=== PATIENT | male | born 1930 | race Caucasian/White ===

== ENCOUNTER 2017-06-07 18:27 | Inpatient (IN) | payer MEDICARE, OTHER ==
[~2017-06-07] VITALS: Ht 172.7 cm; Wt 70.8 kg
[~2017-06-07 18:27] MED LIST: ACEBUTOLOL HCL200 MG PO; AMLODIPINE BES2.5 MG PO; CEFTIN500 MG PO; IRBESARTAN150 MG PO; LASIX40 MG PO; PANTOPRAZOLE SO40 MG PO; PLAVIX75 MG PO; POTASSIUM CHLO10 ME1 PO; PROPAFENONE HC325 MG PO; RANITIDINE HCL300 MG PO; SIMVASTATIN40 MG PO; SYNTHROID88 MCG PO; TAMSULOSIN HCL0.4 MG PO; VITAMIN B-12500 MCG PO; VITAMIN D31000 UNIT PO; [UNRECOGNIZED DRUG - REMARK]
[2017-06-07] MEDS ORDERED: ASPIRIN 325 MG TAB PO ONE (19:15)
[2017-06-07 19:32] LABS: BASOPHILS % 0.3 % (0.0-1.0); HEMATOCRIT 37.5 % (38.2-49.6); HEMOGLOBIN 12.4 g/dL (14.0-18.0); LYMPHOCYTES # (AUTO) 1.2 (1.0-3.2); LYMPHOCYTES % 17.6 % (18.0-39.1); MEAN CORPUSCULAR HEMOGLOBIN 30.8 pg (28-32); MEAN CORPUSCULAR HGB CONC 33.1 g/dL (31-35); MEAN CORPUSCULAR VOLUME 93.3 fL (81-99); MONOCYTES # (AUTO) 0.9 (0.2-0.8); MONOCYTES % 13.9 % (4.4-11.3); NEUTROPHILS # (AUTO) 4.4 (2.1-6.9); NEUTROPHILS % 67.9 % (38.7-80.0); PLATELET COUNT 133 x10e3/uL (140-360); RED BLOOD COUNT 4.02 x10e6/uL (4.3-5.7); RED CELL DISTRIBUTION WIDTH 14.6 % (11.7-14.4)
--- NOTE | 2017-06-07 19:32 | Diagnostic Imaging Report ---
EXAM: CHEST SINGLE (PORTABLE), AP 1 view ORDER DATE: 06/07/2017 6:47 PM Time stamp on exam: 1916 hours INDICATION: Cough, shortness of breath COMPARISON: AP view of the chest April 28, 2016 FINDINGS: LINES/TUBES: None LUNGS: Stable appearance of interstitial lung disease. PLEURA: No effusions or pneumothorax. HEART AND MEDIASTINUM: Stable appearance. BONES AND SOFT TISSUES: No acute findings. IMPRESSION: Stable appearance of interstitial lung disease. Signed by: Dr. Heather Victor M.D. on 06/07/2017 7:28 PM
[2017-06-07 19:39] LABS: INR 1.09; PROTHROMBIN TIME 14.7 seconds (11.9-14.5)
[2017-06-07 19:40] LABS: PARTIAL THROMBOPLASTIN TIME 48.1 seconds (23.8-35.5)
[2017-06-07 19:49] LABS: ALBUMIN 3.5 g/dL (3.5-5.0); ALBUMIN/GLOBULIN RATIO 0.8 (0.8-2.0); ANION GAP 14.4 mmol/L (8-16); CALCIUM 8.9 mg/dL (8.4-10.2); CREATININE, SERUM 1.96 mg/dL (0.72-1.25); POTASSIUM 4.4 mmol/L (3.5-5.1)
[2017-06-07 20:09] LABS: CREATINE KINASE MB 1.1 ng/mL (0.00-5.00); THYROID STIMULATING HORMONE 3.941 uIU/mL (0.350-4.940)
[2017-06-07] MEDS ORDERED: ENOXAPARIN 30 MG/0.3 ML SYR SC STA (20:22)
[2017-06-07] MEDS ORDERED: FUROSEMIDE INJ 10 MG/ML 4 ML VIAL IV ONE (20:30)
[2017-06-07] MEDS ORDERED: ONDANSETRON HCL INJ 2 MG/ML VIAL IV PRN (20:30)
[2017-06-07] MEDS ORDERED: NITROGLYCERIN 0.4 MG SUBL SL PRN (20:30)
[2017-06-07] MEDS ORDERED: CEFTRIAXONE SOD 1 GM VIAL IV SCH (20:30)
[2017-06-07] MEDS ORDERED: MORPHINE SULFATE 2 MG/ML SYR IV PRN (20:30)
[2017-06-07] MEDS ORDERED: CEFTRIAXONE SOD 1 GM/NS 50 ML 50 ML IV SCH (20:45)
[2017-06-07] MEDS: AZITHROMYCIN 500MG/NS 250 ML 250 ML IV SCH ×2 (20:57→21:10)
--- OUTSIDE RECORDS SUMMARY | 2017-06-07 20:58 | XMS REPORT ---
Author Author [facility] Address Unknown Phone Unavailable Care Team Providers Care Beamer Operator Name Role Phone RADHA RICARDO Unavailable Unavailable Problems This patient has no known problems. Allergies, Adverse Reactions, Alerts This patient has no known allergies or adverse reactions. Medications This patient has no known medications. Results Test Description Test Time Test Comments Text Results Atomic Results Result Comments CHEST SINGLE (PORTABLE) [place] [id number] Patient Name: JOHNNA SOLO MR #: [id number] : 1930 Age/Sex: 86/M Req #: [id number] Adm Physician: Ordered by: CLAUDIA WHEELER MANAGER TELECOM Report #: [id number] Location: ER Room/Bed: Procedure: [id number] DX/CHEST SINGLE (PORTABLE) Exam Date: 06/07/17 Exam Time: 1900 REPORT STATUS: Signed EXAM: CHEST SINGLE (PORTABLE), AP 1 view ORDER DATE: 06/07/2017 6:47 PM Time stamp on exam : 1916 hours INDICATION: Cough, shortness of breath COMPARISON: AP view of the chest April 28, 2016 FINDINGS: LINES/TUBES: None LUNGS: Stable appearance of interstitial lung disease. PLEURA: No effusions or pneumothorax. HEART AND MEDIASTINUM: Stable appearance. BONES AND SOFT TISSUES: No acute findings. IMPRESSION: Stable appearance of interstitial lung disease. Signed by: Dr. Zenobia Victor M.D. on 06/07/2017 7:28 PM Dictated By: ZENOBIA VICTOR MD 27 Transcribed By: MERLIN on 06/07/171927 COPY TO: CLAUDIA WHEELER NP
[2017-06-07] MEDS: FAMOTIDINE 20 MG/2 ML VIAL IV SCH (21:20)
[2017-06-07 21:35] VITALS: BP 120/63
[2017-06-08 01:39] VITALS: BP 124/64
[2017-06-08 06:06] LABS: BASOPHILS % 0.2 % (0.0-1.0); EOSINOPHILS % 0.2 % (0.0-6.0); HEMATOCRIT 33.7 % (38.2-49.6); HEMOGLOBIN 11.2 g/dL (14.0-18.0); LYMPHOCYTES # (AUTO) 1.1 (1.0-3.2); LYMPHOCYTES % 18.7 % (18.0-39.1); MEAN CORPUSCULAR HGB CONC 33.2 g/dL (31-35); MEAN CORPUSCULAR VOLUME 93.4 fL (81-99); MONOCYTES # (AUTO) 0.8 (0.2-0.8); MONOCYTES % 13.9 % (4.4-11.3); NEUTROPHILS # (AUTO) 3.9 (2.1-6.9); NEUTROPHILS % 66.7 % (38.7-80.0); PLATELET COUNT 101 x10e3/uL (140-360); RED BLOOD COUNT 3.61 x10e6/uL (4.3-5.7); RED CELL DISTRIBUTION WIDTH 14.4 % (11.7-14.4)
[2017-06-08 06:37] LABS: ALBUMIN/GLOBULIN RATIO 0.9 (0.8-2.0); ANION GAP 11.9 mmol/L (8-16); CHOL/HDL RATIO 5.1 (3.9-4.7); CREATININE, SERUM 1.67 mg/dL (0.72-1.25); MAGNESIUM 1.9 MG/DL (1.3-2.1); POTASSIUM 3.9 mmol/L (3.5-5.1)
[2017-06-08 06:41] LABS: CREATINE KINASE MB 1.5 ng/mL (0.00-5.00)
[2017-06-08] MEDS ORDERED: HEMATINIC-FOLI1 EACH (07:52)
[2017-06-08] MEDS ORDERED: LOSARTAN POTAS100 MG PO (07:52)
[2017-06-08 08:10] VITALS: BP 113/63
[2017-06-08 08:14] VITALS: BP 113/63
[2017-06-08] MEDS ORDERED: SODIUM CHLORIDE 0.9% 250ML 250 ML ONE (09:11)
[2017-06-08] MEDS: FAMOTIDINE 20 MG/2 ML VIAL IV SCH ×2 (09:20→20:49)
[2017-06-08] MEDS: CLOPIDOGREL BISULFATE 75 MG TAB PO SCH (09:20)
[2017-06-08] MEDS: ASPIRIN 81 MG ENTERIC COATED PO SCH (09:20)
[2017-06-08] MEDS: CEFTRIAXONE SOD 1 GM VIAL IV SCH ×2 (09:20→20:49)
[2017-06-08] MEDS ORDERED: ACETAMINOPHEN 325 MG TAB PO PRN (10:45)
[2017-06-08 13:20] VITALS: BP 120/64
--- NOTE | 2017-06-08 13:38 | Consultation ---
DATE OF CONSULTATION: June 08, 2017 DATE OF : 1930 REASON FOR CONSULTATION: CHF. CHIEF COMPLAINT: Cough and weakness. HPI: This is an 86-year-old male with history of hypertension, CAD status post PCI, arrhythmias, mitral stenosis, peripheral vascular disease status post stenting, and hypercholesterolemia. Patient presents to [facility] ER with complaints of severe weakness and coughing since Thursday. Patient actually went to an urgent care center, was negative for influenza; however, symptoms continued. On Thursday, patient states that he was unable to get up out of his chair secondary to profound weakness, so therefore came to the ER for further evaluation. Cardiology consulted. Patient seen in room, in no acute distress. Reports a several-day history of cough, rattling sensation; however, unable to bring up phlegm. Also weakness since Thursday. Denies any chest pains on exertion. Positive for mild shortness of breath with exertion. No orthopnea, no PND reported. BNP on arrival 160. PAST MEDICAL HISTORY 1. CAD, status post PCI. 2. Peripheral vascular disease, status post right SFA stent. 3. Hypertension. 4. Hypercholesterolemia. 5. Hypothyroidism. 6. Prostate cancer, status post radiation. 7. GERD. 8. Anemia. 9. Basal cell carcinoma. 10. SVT/arrhythmias. 11. Mitral stenosis. 12. History of SVT. PAST SURGICAL HISTORY: Tonsillectomy, appendectomy, fracture of left leg, stenting to his right SFA, and stenting to his RCA. FAMILY HISTORY: Mother at age 67 with history of diabetes. Father at age 87 with history of cancer, smoker. SOCIAL HISTORY: He is . 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 Former smoker, quit in 1963. Denies any alcohol use. ALLERGIES: NO KNOWN ALLERGIES. REVIEW OF SYSTEMS GENERAL: Denies any weight changes. Positive for fatigue, weakness, subjective fevers. No chills. SKIN: No rashes or sores reported. HEENT: No nausea, vomiting, vision changes. No vertigo, tinnitus, ear discharge. Denies any hoarseness, sore throat, or swollen neck. CARDIAC: Denies any chest pains. Positive for dyspnea on exertion. No orthopnea, no PND. No lower extremity edema. RESPIRATORY: Positive for shortness of breath. Positive for coughing, intermittent wheezing. Denies any hemoptysis. GI: Reports poor appetite. No nausea or vomiting. No diarrhea, constipation, hemoptysis, melena, hematochezia. URINARY: Positive for frequency and urgency. Positive for incontinence. VASCULAR: No leg edema. Positive for intermittent claudication. MUSCULOSKELETAL: Positive for muscle weakness and generalized joint pains. NEUROLOGIC: Denies any tingling, tremors, blackouts, or seizures. HEMATOLOGY: No anemia. Positive for bruising. ENDOCRINE: No heat or cold intolerance. No polyuria, polydipsia, or polyphagia. PHYSICAL EXAMINATION GENERAL: Appears stated age, reliable for me, in no acute distress. VITAL SIGNS: Current vital signs; temperature 99.9, pulse 80, respiratory rate 18, blood pressure 113/63, pulse ox 98. SKIN: No rashes or bruises noted. HEENT: Normocephalic. Pupils equal and reactive. Extraocular muscle intact. NECK: No thyromegaly. No JVD. No carotid bruits. HEART: Regular rate and rhythm. Soft systolic murmur. PMI 4th and 5th intercostal space. LUNGS: Central rhonchi noted, intermittent wheezes and crackles. ABDOMEN: Soft, nontender, nondistended. No organomegaly noted. MUSCULOSKELETAL: Generalized muscle weakness throughout. No lower extremity swelling. VASCULAR: +2 radial bilateral pulses and +1 DP and PT pulses bilaterally. NEUROLOGIC: Cranial nerves II-XII seem intact. LABORATORY DATA: Sodium 134, potassium 4.4, chloride 25, BUN 37, creatinine 1.9. Troponin 0.007 and 0.010. BNP 160. TSH 3.9. White count 5.8, red blood cells 3.6, hemoglobin 11, hematocrit 33, platelets 101. IMAGING DATA: Chest x-ray showing stable interstitial lung disease. EKG showing sinus rhythm with a right bundle branch block. ASSESSMENT 1. Possible bronchitis/pneumonia. 2. Acute kidney injury. 3. History of coronary artery disease, status post percutaneous coronary intervention. 4. Peripheral vascular disease, status post intervention. 5. History of mitral stenosis. 6. Debility. PLAN 1. Patient presents with cough, profound weakness with subjective fevers, currently with a low-grade temperature, on antibiotic therapy. 2. Will for now continue patient's aspirin and Plavix therapy. 3. Will restart antihypertensives as blood pressure permits. 4. Will go ahead and repeat an echo to evaluate his mitral stenosis progression. 5. Continue patient's home antiarrhythmic therapy. 6. Continue telemonitoring for now. 7. We will go ahead and order physical therapy. Thank you very much for this consult. We will follow patient and adjust cardiac therapy as clinical status dictates. Dictated By: Pavel Marinelli NP Job#: [id number] VAS
[2017-06-08 15:18] LABS: CREATINE KINASE MB 1.4 ng/mL (0.00-5.00)
[2017-06-08] MEDS ORDERED: PROPAFENONE HCL 150 MG TAB PO SCH (17:00)
[2017-06-08] MEDS: METOPROLOL TARTRATE 25 MG TAB PO SCH (17:15)
[2017-06-08] MEDS: ENOXAPARIN SOD INJ 40 MG/0.4 ML SYR SC SCH (17:15)
[2017-06-08 17:29] VITALS: BP 116/64
[2017-06-08 20:00] VITALS: BP 111/56
[2017-06-08] MEDS: PROPAFENONE HCL SR 325 MG CAPCR PO SCH (20:49)
[2017-06-08] MEDS: GUAIFENESIN/DEXTROMETHORPHAN LIQD 5 ML UDC PO PRN (23:44)
[2017-06-09] VITALS (8 sets, daily range): BP systolic 112–145; BP diastolic 58–69
[2017-06-09 06:01] LABS: BASOPHILS % 0.4 % (0.0-1.0); EOSINOPHILS % 0.6 % (0.0-6.0); HEMATOCRIT 34.1 % (38.2-49.6); HEMOGLOBIN 11.4 g/dL (14.0-18.0); LYMPHOCYTES # (AUTO) 1.3 (1.0-3.2); LYMPHOCYTES % 23.9 % (18.0-39.1); MEAN CORPUSCULAR HEMOGLOBIN 30.9 pg (28-32); MEAN CORPUSCULAR HGB CONC 33.4 g/dL (31-35); MEAN CORPUSCULAR VOLUME 92.4 fL (81-99); MONOCYTES # (AUTO) 0.7 (0.2-0.8); MONOCYTES % 12.3 % (4.4-11.3); NEUTROPHILS # (AUTO) 3.4 (2.1-6.9); NEUTROPHILS % 62.6 % (38.7-80.0); PLATELET COUNT 101 x10e3/uL (140-360); RED BLOOD COUNT 3.69 x10e6/uL (4.3-5.7); RED CELL DISTRIBUTION WIDTH 14.4 % (11.7-14.4)
[2017-06-09] MEDS: LEVOTHYROXINE SODIUM 88 MCG TAB PO SCH (06:11)
[2017-06-09 06:17] LABS: ALBUMIN 2.9 g/dL (3.5-5.0); ALBUMIN/GLOBULIN RATIO 0.7 (0.8-2.0); CALCIUM 8.2 mg/dL (8.4-10.2); CREATININE, SERUM 1.17 mg/dL (0.72-1.25)
[2017-06-09 07:36] LABS: BAND NEUTROPHILS % (MANUAL) 2 %; EOSINOPHILS % (MANUAL) 2 % (0-7); LYMPHOCYTES % (MANUAL) 16 % (19-48); MONOCYTES % (MANUAL) 8 % (3.4-9.0); NEUTROPHILS % (MANUAL) 65 % (40-74)
[2017-06-09 07:37] LABS: ANISOCYTOSIS SLIGHT; PLATELET ESTIMATE SLIGHTLY DECREASED; PLATELET MORPHOLOGY COMMENT FEW LARGE; RBC MORPHOLOGY COMMENT NORMAL
[2017-06-09] MEDS: ALBUTEROL/IPRATROPIUM 3 ML NEB NEB PRN ×2 (08:20→11:18)
[2017-06-09] MEDS: ASPIRIN 81 MG ENTERIC COATED PO SCH (09:00)
[2017-06-09] MEDS: CEFTRIAXONE SOD 1 GM VIAL IV SCH ×2 (09:45→20:31)
[2017-06-09] MEDS: CLOPIDOGREL BISULFATE 75 MG TAB PO SCH (09:45)
[2017-06-09] MEDS: FAMOTIDINE 20 MG/2 ML VIAL IV SCH ×2 (09:45→20:19)
[2017-06-09] MEDS: PROPAFENONE HCL SR 325 MG CAPCR PO SCH ×2 (09:45→20:30)
[2017-06-09] MEDS: METOPROLOL TARTRATE 25 MG TAB PO SCH ×2 (09:45→17:39)
[2017-06-09] MEDS: AZITHROMYCIN 500MG/NS 250 ML 250 ML IV SCH (09:45)
[2017-06-09] MEDS: ENOXAPARIN SOD INJ 40 MG/0.4 ML SYR SC SCH (17:39)
[2017-06-10] VITALS (8 sets, daily range): BP systolic 122–185; BP diastolic 63–80
[2017-06-10] MEDS: LEVOTHYROXINE SODIUM 88 MCG TAB PO SCH (05:29)
[2017-06-10] MEDS: GUAIFENESIN/DEXTROMETHORPHAN LIQD 5 ML UDC PO PRN (05:30)
[2017-06-10] MEDS: METOPROLOL TARTRATE 25 MG TAB PO SCH ×2 (08:16→17:26)
[2017-06-10] MEDS: CLOPIDOGREL BISULFATE 75 MG TAB PO SCH (08:16)
[2017-06-10] MEDS: PROPAFENONE HCL SR 325 MG CAPCR PO SCH ×2 (08:16→21:41)
[2017-06-10] MEDS: CEFTRIAXONE SOD 1 GM VIAL IV SCH ×2 (08:47→21:41)
[2017-06-10] MEDS: FAMOTIDINE 20 MG/2 ML VIAL IV SCH (08:47)
[2017-06-10] MEDS: AZITHROMYCIN 500MG/NS 250 ML 250 ML IV SCH (09:13)
[2017-06-10] MEDS: ENOXAPARIN SOD INJ 40 MG/0.4 ML SYR SC SCH (17:26)
[2017-06-10] MEDS: LOSARTAN POTASSIUM 100 MG TAB PO SCH (17:26)
[2017-06-10] MEDS: FAMOTIDINE 20 MG TAB PO SCH (17:26)
[2017-06-11] VITALS: BP 165/73
[2017-06-11 00:23] VITALS: BP 156/69
[2017-06-11] MEDS: ALBUTEROL/IPRATROPIUM 3 ML NEB NEB PRN (01:15)
[2017-06-11] MEDS: LEVOTHYROXINE SODIUM 88 MCG TAB PO SCH (05:16)
[2017-06-11 06:00] LABS: BASOPHILS % 0.2 % (0.0-1.0); EOSINOPHILS % 0.4 % (0.0-6.0); HEMATOCRIT 32.9 % (38.2-49.6); LYMPHOCYTES # (AUTO) 1.7 (1.0-3.2); LYMPHOCYTES % 31.2 % (18.0-39.1); MEAN CORPUSCULAR HEMOGLOBIN 30.6 pg (28-32); MEAN CORPUSCULAR HGB CONC 33.4 g/dL (31-35); MEAN CORPUSCULAR VOLUME 91.6 fL (81-99); MONOCYTES # (AUTO) 0.6 (0.2-0.8); MONOCYTES % 11.5 % (4.4-11.3); NEUTROPHILS % 56.3 % (38.7-80.0); PLATELET COUNT 123 x10e3/uL (140-360); RED BLOOD COUNT 3.59 x10e6/uL (4.3-5.7); RED CELL DISTRIBUTION WIDTH 13.9 % (11.7-14.4)
[2017-06-11 06:29] LABS: ANION GAP 14.1 mmol/L (8-16); BLOOD UREA NITROGEN 19 mg/dL (7-26); BUN/CREATININE RATIO 19 (6-25); CALCIUM 8.1 mg/dL (8.4-10.2); CARBON DIOXIDE 21 mmol/L (22-29); CHLORIDE 105 mmol/L (98-107); CREATININE, SERUM 1.01 mg/dL (0.72-1.25); EST GLOMERULAR FILTRATION RATE > 60 ML/MIN (60-); GLUCOSE 82 mg/dL (74-118); POTASSIUM 4.1 mmol/L (3.5-5.1); SODIUM 136 mmol/L (136-145)
--- NOTE | 2017-06-11 07:40 | Diagnostic Imaging Report ---
PROCEDURE: Frontal and lateral views of the chest. COMPARISON: Portable chest 06/07/2017. INDICATIONS: SHORTNESS OF BREATH. COUGH. WEAKNESS FINDINGS: Lines/tubes: None. Lungs: Bilateral lower lung reticular parenchymal changes. No parenchymal mass. Pleura: There is no pleural effusion or pneumothorax. Heart and mediastinum: The heart and the mediastinum are normal. Atherosclerotic calcifications. Bones: No acute bony abnormality. Degenerative changes of the thoracic spine. IMPRESSION: Bilateral lower lung reticular changes may represent fibrosis. Dictated by: Yaya Eng M.D. on 06/11/2017 at 7:50 Electronically approved by: Yaya Eng M.D. on 06/11/2017 at 7:50
[2017-06-11 08:00] VITALS: BP 161/88
[2017-06-11] MEDS: METOPROLOL TARTRATE 25 MG TAB PO SCH ×2 (08:45→17:17)
[2017-06-11] MEDS: CLOPIDOGREL BISULFATE 75 MG TAB PO SCH (08:45)
[2017-06-11] MEDS: PROPAFENONE HCL SR 325 MG CAPCR PO SCH (08:45)
[2017-06-11] MEDS: LOSARTAN POTASSIUM 100 MG TAB PO SCH (08:45)
[2017-06-11] MEDS: CEFTRIAXONE SOD 1 GM VIAL IV SCH (08:45)
[2017-06-11] MEDS: FAMOTIDINE 20 MG TAB PO SCH ×2 (08:45→17:17)
[2017-06-11] MEDS: AZITHROMYCIN 500MG/NS 250 ML 250 ML IV SCH (09:00)
[2017-06-11] MEDS ORDERED: FUROSEMIDE INJ 10 MG/ML 2 ML VIAL IV NR (11:00)
[2017-06-11 12:00] VITALS: BP 135/82
[2017-06-11 16:00] VITALS: BP 154/71
[2017-06-11] MEDS: ENOXAPARIN SOD INJ 40 MG/0.4 ML SYR SC SCH (17:17)
[2017-06-12] MEDS ORDERED: FUROSEMIDE 20 MG TAB PO SCH (09:00)
== END 2017-06-11 18:02 | DRG 291 ==
LOC: ER 18:27 → ERHOLD 20:55 → MED/SURG2 21:26
DX: I11.0 Hypertensive heart disease with heart failure (principal); J18.9 Pneumonia, unspecified organism; N17.9 Acute kidney failure, unspecified; J84.9 Interstitial pulmonary disease, unspecified; I08.3 Combined rheumatic disorders of mitral, aortic and tricuspid valves; I73.9 Peripheral vascular disease, unspecified; Z95.1 Presence of aortocoronary bypass graft; J45.901 Unspecified asthma with (acute) exacerbation; I50.33 Acute on chronic diastolic (congestive) heart failure; I70.219 Atherosclerosis of native arteries of extremities with intermittent claudication, unspecified extremity; K21.9 Gastro-esophageal reflux disease without esophagitis; Z95.820 Peripheral vascular angioplasty status with implants and grafts; I25.10 Atherosclerotic heart disease of native coronary artery without angina pectoris; E03.9 Hypothyroidism, unspecified; Z95.5 Presence of coronary angioplasty implant and graft; N40.0 Benign prostatic hyperplasia without lower urinary tract symptoms; Z87.891 Personal history of nicotine dependence; N39.41 Urge incontinence
CPT/HCPCS: 36415; 71045; 71046; 80048; 80053; 80061; 82550; 82553; 83605; 83735; 83880; 84443; 84484; 85025; 85610; 85730; 87040; 87400; 93005; 93306; 94640; 96372; 96374; 96375; 96376; 99284; J0456; J0696; J1650; J1940; J7050

== ENCOUNTER → 2017-06-12 | Outpatient (CLI) | payer OTHER ==
[~2017-06-12] MED LIST changes: +HEMATINIC-FOLI1 EACH; +LOSARTAN POTAS100 MG PO
[2017-06-12 14:58] LABS: ALANINE AMINOTRANSFERASE 24 IU/L (0-55); ALBUMIN/GLOBULIN RATIO 0.7 (0.8-2.0); ALKALINE PHOSPHATASE 81 IU/L (40-150); ANION GAP 14.2 mmol/L (8-16); BLOOD UREA NITROGEN 17 mg/dL (7-26); BUN/CREATININE RATIO 17 (6-25); CALCIUM 8.7 mg/dL (8.4-10.2); CARBON DIOXIDE 23 mmol/L (22-29); CHLORIDE 103 mmol/L (98-107); CREATININE, SERUM 1.03 mg/dL (0.72-1.25); EST GLOMERULAR FILTRATION RATE > 60 ML/MIN (60-); GLUCOSE 81 mg/dL (74-118); POTASSIUM 4.2 mmol/L (3.5-5.1); SODIUM 136 mmol/L (136-145)
[2017-06-12 15:00] LABS: BASOPHILS % 0.2 % (0.0-1.0); EOSINOPHILS # (AUTO) 0.1 (0.0-0.4); EOSINOPHILS % 0.8 % (0.0-6.0); HEMATOCRIT 34.8 % (38.2-49.6); HEMOGLOBIN 11.6 g/dL (14.0-18.0); LYMPHOCYTES # (AUTO) 1.6 (1.0-3.2); LYMPHOCYTES % 26.3 % (18.0-39.1); MEAN CORPUSCULAR HEMOGLOBIN 30.6 pg (28-32); MEAN CORPUSCULAR HGB CONC 33.3 g/dL (31-35); MEAN CORPUSCULAR VOLUME 91.8 fL (81-99); MONOCYTES # (AUTO) 0.7 (0.2-0.8); MONOCYTES % 10.9 % (4.4-11.3); NEUTROPHILS # (AUTO) 3.7 (2.1-6.9); NEUTROPHILS % 61.3 % (38.7-80.0); PLATELET COUNT 185 x10e3/uL (140-360); RED BLOOD COUNT 3.79 x10e6/uL (4.3-5.7); RED CELL DISTRIBUTION WIDTH 14.1 % (11.7-14.4)
== END ==
LOC: NPA 11:22
DX: Z02.89 Encounter for other administrative examinations (principal)
CPT/HCPCS: 36415; 80053; 85025

== ENCOUNTER → 2017-06-15 | Outpatient (CLI) | payer OTHER ==
[2017-06-15 17:58] LABS: BLOOD UREA NITROGEN 17 mg/dL (7-26); BUN/CREATININE RATIO 15 (6-25); CALCIUM 9.1 mg/dL (8.4-10.2); CARBON DIOXIDE 21 mmol/L (22-29); CHLORIDE 104 mmol/L (98-107); CREATININE, SERUM 1.14 mg/dL (0.72-1.25); EST GLOMERULAR FILTRATION RATE > 60 ML/MIN (60-); GLUCOSE 115 mg/dL (74-118); SODIUM 135 mmol/L (136-145)
[2017-06-15 18:05] LABS: BASOPHILS % 0.3 % (0.0-1.0); EOSINOPHILS # (AUTO) 0.1 (0.0-0.4); EOSINOPHILS % 1.3 % (0.0-6.0); HEMATOCRIT 34.3 % (38.2-49.6); HEMOGLOBIN 11.4 g/dL (14.0-18.0); LYMPHOCYTES # (AUTO) 1.4 (1.0-3.2); LYMPHOCYTES % 20.4 % (18.0-39.1); MEAN CORPUSCULAR HEMOGLOBIN 30.6 pg (28-32); MEAN CORPUSCULAR HGB CONC 33.2 g/dL (31-35); MONOCYTES # (AUTO) 0.7 (0.2-0.8); MONOCYTES % 10.2 % (4.4-11.3); NEUTROPHILS # (AUTO) 4.8 (2.1-6.9); NEUTROPHILS % 67.2 % (38.7-80.0); PLATELET COUNT 288 x10e3/uL (140-360); RED BLOOD COUNT 3.73 x10e6/uL (4.3-5.7); RED CELL DISTRIBUTION WIDTH 14.1 % (11.7-14.4)
== END ==
LOC: NPA 12:22
DX: Z02.89 Encounter for other administrative examinations (principal)
CPT/HCPCS: 36415; 80048; 85025

== ENCOUNTER 2017-07-15 06:56 | Inpatient (IN) | payer MEDICARE, OTHER ==
[~2017-07-15] VITALS: Ht 172.7 cm; Wt 70.8 kg
--- OUTSIDE RECORDS SUMMARY | 2017-07-15 06:58 | XMS REPORT | Continuity of Care Document ---
Author Author [facility] Organization [facility] Address [address] [place] [address] Phone Unavailable Care Team Providers Care Regional Safety Manager Name Role Phone RENEE UMANA MD PCP Insurance Providers Guarantor AndrésJohnna Address [address] [place] [address] Email [email or web address] Payer [facility] Plan Indemnity Policy Number [id number] Subscriber's Name Johnna Solo Relationship 18 Self / Same As Patient Group Number [id number] Group Name RETIRED Effective Date 15 Payer Medicare A & B Policy Number [id number] Subscriber's Name Johnna Solo Relationship 18 Self / Same As Patient Group Name RETIRED Effective Date 93 Advance Directives Directive Response Recorded Date/Time Does the patient have an advance directive? No 06/08/17 1:33am If yes, is advance directive on file with [facility]? No 06/08/17 1:33am If not on file with [facility] will patient provide a copy? No 06/08/17 1:33am Do you have a Directive to Physician? No 06/07/17 7:31pm Do you have a Medical Power of Quick Print Operator? No 06/07/17 7:31pm Do you have an out of hospital Do Not Resuscitate Order? No 06/07/17 7:31pm Do you have any special needs we should be aware of? No 06/07/17 7:31pm Do you have a support person here with you today? Yes 06/07/17 7:31pm Did patient receive Notice of Privacy Practices? Yes 06/07/17 7:31pm Did patient receive patient rights and responsibilities? Yes 06/07/17 7:31pm Problems Medical Problem Onset Date Status Acute electrocardiogram changes Unknown CHF (congestive heart failure) Unknown Pneumonia Unknown RBBB Unknown Renal insufficiency Unknown Medications Current Home Medications Medication Dose Units Route Directions Days Qty Instructions Start Date Amlodipine Besylate 2.5 Mg Tablet 2.5 Mg Oral Daily Cholecalciferol (Vitamin D3) (Vitamin D3) 1,000 Unit Capsule 1,000 Cap Oral Daily Clopidogrel Bisulfate (Plavix) 75 Mg Tablet 75 Mg Oral Daily Cyanocobalamin (Vitamin B-12) (Vitamin B-12) 500 Mcg Tablet 1,000 Mcg Oral Daily Doesnt Have Med List Ferrous Fumarate/Folic Acid (Hematinic-Folic Acid Tablet) 1 Each Tablet Daily Furosemide (Lasix) 40 Mg Tablet 40 Mg Oral Daily 30 Tab Levothyroxine Sodium (Synthroid) 88 Mcg Tablet 88 Mcg Oral Today At 6:30AM 30 Tab Losartan Potassium 100 Mg Tablet 100 Mg Oral Daily Pantoprazole Sodium (Protonix) 40 Mg Tablet.dr 40 Mg Oral Daily Potassium Chloride 10 Meq Tab.er.prt 10 Meq Oral Daily Propafenone Hcl 325 Mg Cap.er.12h 325 Mg Oral Every 12 Hours Ranitidine Hcl 300 Mg Tablet 30 Mg Oral Bedtime Simvastatin 40 Mg Tablet 40 Mg Oral Today At 9:00PM 30 Tab Tamsulosin Hcl 0.4 Mg Cap.er.24h 0.4 Mg Oral Daily Past Home Medications Medication Directions Ordered Status Acebutolol Hcl 200 Mg Capsule, 200 Mg Oral Daily Discontinued Cefuroxime Axetil (Ceftin) 500 Mg Tablet, 500 Mg Oral Every 12 Hours Discontinued Irbesartan 150 Mg Tablet, 300 Mg Oral Daily Discontinued Family History Relationship Condition Age at Onset Recorded Date/Time 33 Father Family history of coronary artery disease 50's - 60 04/06/2016 2: 06pm 33 Father Family history of hypertension Unknown 04/06/2016 2:07pm 32 Mother Family history of hypertension Unknown 04/06/2016 2:07pm Social History Social History Problem Response Recorded Date/Time Onset Date Status Hx Psychiatric Problems No 06/08/2017 1:33am Not Applicable Not Applicable Hx Eating Disorder No 06/08/2017 1:33am Not Applicable Not Applicable Hx Substance Use Disorder No 06/08/2017 1:33am Not Applicable Not Applicable Hx Depression No 06/08/2017 1:33am Not Applicable Not Applicable Hx Alcohol Use No 06/08/2017 1:33am Not Applicable Not Applicable Hx Substance Use Treatment No 06/08/2017 1:33am Not Applicable Not Applicable Hx Physical Abuse No 06/08/2017 1:33am Not Applicable Not Applicable Smoking Status Start Date Stop Date Never Smoker Hospital Discharge Instructions No hospital discharge instruction information available. Plan of Care Discharge Date 06/11/17 6:02pm Disposition [facility] ([facility]) Prescriptions See Medication Section Functional Status Query Response Date Recorded FUNCTIONAL STATUS . June 09, 2017 12:03pm Ambulation Ability Moderate Assistance 1 person assist June 08, 2017 1:39am Toileting Ability Standby Assistance June 11, 2017 5:09pm Allergies, Adverse Reactions, Alerts No known allergies. Immunizations No immunization information available. Vital Signs Acute Vital Signs Vital Response Date/Time Temperature (Fahrenheit) 96.5 degrees F (97.6 - 99.5) 06/11/2017 4:00pm Pulse Pulse Rate (adult) 64 bpm (60 - 90) 06/11/2017 4:00pm Respiratory Rate 18 bpm (12 - 24) 06/11/2017 4:00pm Blood Pressure 154/71 mm Hg 06/11/2017 4:00pm Height 5 ft 8 in 06/07/2017 6:43pm Weight 156.01 lb 06/08/2017 8:14am Body Mass Index 23.7 kg/m^2 06/11/2017 1:18am Results Laboratory Results Test Name Result Units Flags Reference Collection Date/Time Result Date/ Time Comments White Blood Count 5.39 x10e3/uL 4.8-10.8 06/11/2017 5:4706/11/2017 6 :09am Red Blood Count 3.59 x10e6/uL L 4.3-5.7 06/11/2017 5:47am 06/11/2017 6: 09am Hemoglobin 11.0 g/dL L 14.0-18.0 06/11/2017 5:47am 06/11/2017 6:09am Hematocrit 32.9 % L 38.2-49.6 06/11/2017 5:47am 06/11/2017 6:09am Mean Corpuscular Volume 91.6 fL 81-99 06/11/2017 5:47am 06/11/2017 6: 09am Mean Corpuscular Hemoglobin 30.6 pg 28-32 06/11/2017 5:47am 06/11/2017 6:09am Mean Corpuscular Hemoglobin Concent 33.4 g/dL 31-35 06/11/2017 5:47am 06/11/2017 6:09am Red Cell Distribution Width 13.9 % 11.7-14.4 06/11/2017 5:47am 2017 6:09am Platelet Count 123 x10e3/uL L 140-360 06/11/2017 5:47am 06/11/2017 6: 09am Neutrophils (%) (Auto) 56.3 % 38.7-80.0 06/11/2017 5:47am 06/11/2017 6: 09am Lymphocytes (%) (Auto) 31.2 % 18.0-39.1 06/11/2017 5:47am 06/11/2017 6: 09am Monocytes (%) (Auto) 11.5 % H 4.4-11.3 06/11/2017 5:47am 06/11/2017 6: 09am Eosinophils (%) (Auto) 0.4 % 0.0-6.0 06/11/2017 5:47am 06/11/2017 6: 09am Basophils (%) (Auto) 0.2 % 0.0-1.0 06/11/2017 5:47am 06/11/2017 6:09am IM GRANULOCYTES % 0.4 % 0.0-1.0 06/11/2017 5:47am 06/11/2017 6:09am Neutrophils # (Auto) 3.0 2.1-6.9 06/11/2017 5:47am 06/11/2017 6:09am Lymphocytes # (Auto) 1.7 1.0-3.2 06/11/2017 5:47am 06/11/2017 6:09am Monocytes # (Auto) 0.6 0.2-0.8 06/11/2017 5:47am 06/11/2017 6:09am Eosinophils # (Auto) 0.0 0.0-0.4 06/11/2017 5:47am 06/11/2017 6:09am Basophils # (Auto) 0.0 0.0-0.1 06/11/2017 5:47am 06/11/2017 6:09am Absolute Immature Granulocyte (auto 0.02 x10e3/uL 0-0.1 06/11/2017 5: 47am 06/11/2017 6:09am Differential Total Cells Counted 100 06/09/2017 5:46am 06/09/2017 7 :37am Neutrophils % (Manual) 65 % 40-74 06/09/2017 5:46am 06/09/2017 7:37am Band Neutrophils % 2 % 06/09/2017 5:46am 06/09/2017 7:37am Lymphocytes % (Manual) 16 % L 19-48 06/09/2017 5:46am 06/09/2017 7:37am Monocytes % (Manual) 8 % 3.4-9.0 06/09/2017 5:46am 06/09/2017 7:37am Eosinophils % (Manual) 2 % 0-7 06/09/2017 5:46am 06/09/2017 7:37am Reactive Lymphocytes 7 06/09/2017 5:46am 06/09/2017 7:37am Platelet Estimate SLIGHTLY DECREASED 06/09/2017 5:46am 06/09/2017 7 :37am Platelet Morphology Comment FEW LARGE 06/09/2017 5:46am 06/09/2017 7:37am Anisocytosis SLIGHT 06/09/2017 5:46am 06/09/2017 7:37am Red Cell Morphology Comment NORMAL 06/09/2017 5:46am 06/09/2017 7: 37am Prothrombin Time 14.7 seconds H 11.9-14.5 06/07/2017 6:56pm 06/07/2017 8 :00pm Prothromb Time International Ratio 1.09 06/07/2017 6:56pm 2017 8:00pm Oral Anticoagulant Therapy INR Values: 1. Low Intensity Therapy 1.5 - 2.0 2. Moderate Intensity Therapy 2.0 - 3.0 3. High Intensity Therapy(1) 2.5 - 3.5 4. High Intensity Therapy(2) 3.0 - 4.0 5. Panic Value INR > 5.0 Activated Partial Thromboplast Time 48.1 seconds H 23.8-35.5 06/07/2017 6 :56pm 06/07/2017 8:00pm Sodium Level 136 mmol/L 136-145 06/11/2017 5:47am 06/11/2017 6:30am Potassium Level 4.1 mmol/L 3.5-5.1 06/11/2017 5:47am 06/11/2017 6:30am Chloride Level 105 mmol/L 98-107 06/11/2017 5:47am 06/11/2017 6:30am Influenza Virus Types A,B Antigen NEGATIVE NEGATIVE 06/07/2017 6:56pm 06/07/2017 9:51pm Carbon Dioxide Level 21 mmol/L L 22-29 06/11/2017 5:47am 06/11/2017 6: 30am Anion Gap 14.1 mmol/L 8-16 06/11/2017 5:47am 06/11/2017 6:30am Blood Urea Nitrogen 19 mg/dL 7-06/11/2017 5:47am 06/11/2017 6:30am Creatinine 1.01 mg/dL 0.72-1.25 06/11/2017 5:47am 06/11/2017 6:30am BUN/Creatinine Ratio 19 6-25 06/11/2017 5:47am 06/11/2017 6:30am Estimat Glomerular Filtration Rate > 60 ML/MIN 60- 06/11/2017 5:47am 6:30am Ranges were taken from the National Kidney Disease Education Program and the National Kidney Foundation literature. Reference ranges: 60 or greater: Normal 16-59 (for 3 consecutive months): Chronic kidney disease 15 or less: Kidney failure Glucose Level 82 mg/dL 74-118 06/11/2017 5:47am 06/11/2017 6:30am Calcium Level 8.1 mg/dL L 8.4-10.2 06/11/2017 5:47am 06/11/2017 6:30am Lactic Acid Level 7.8 MG/DL 4.5-19.8 06/07/2017 8:50pm 06/07/2017 10: 01pm Magnesium Level 1.9 MG/DL 1.3-2.1 06/08/2017 5:45am 06/08/2017 6:41am Total Bilirubin 0.4 mg/dL 0.2-1.2 06/09/2017 5:46am 06/09/2017 6:20am Aspartate Amino Transf (AST/SGOT) 25 IU/L 5-34 06/09/2017 5:46am 2017 6:20am Alanine Aminotransferase (ALT/SGPT) 19 IU/L 0-55 06/09/2017 5:46am 10/2017 6:20am Total Protein 7.0 g/dL 6.5-8.1 06/09/2017 5:46am 06/09/2017 6:20am Albumin 2.9 g/dL L 3.5-5.0 06/09/2017 5:46am 06/09/2017 6:20am Globulin 4.1 g/dL H 2.3-3.5 06/09/2017 5:46am 06/09/2017 6:20am Albumin/Globulin Ratio 0.7 L 0.8-2.0 06/09/2017 5:46am 06/09/2017 6: 20am Alkaline Phosphatase 78 IU/L 40-150 06/09/2017 5:46am 06/09/2017 6: 20am Triglycerides Level 112 MG/DL 0-149 06/08/2017 5:45am 06/08/2017 6: 41am Cholesterol Level 101 MD/DL 0-199 06/08/2017 5:45am 06/08/2017 6:41am Less than 200 mg/dL Low Risk 201 - 239 mg/dL Borderline Risk 240 mg/dl and greater High Risk LDL Cholesterol 59 MG/DL L 60-130 06/08/2017 5:45am 06/08/2017 6:41am HDL Cholesterol 20 MG/DL L 40-60 06/08/2017 5:45am 06/08/2017 6:41am Cholesterol/HDL Ratio 5.1 H 3.9-4.7 06/08/2017 5:45am 06/08/2017 6: 41am B-Type Natriuretic Peptide 160.7 pg/mL H 0-100 06/07/2017 6:56pm 2017 10:00pm Creatine Kinase 66 IU/L 30-200 06/08/2017 2:40pm 06/08/2017 3:13pm Creatine Kinase MB 1.40 ng/mL 0.00-5.00 06/08/2017 2:40pm 06/08/2017 3: 22pm Troponin I 0.008 ng/mL 0-0.300 06/08/2017 2:40pm 06/08/2017 3:22pm Thyroid Stimulating Hormone (TSH) 3.941 uIU/mL 0.350-4.940 06/07/2017 6: 56pm 06/07/2017 8:12pm Microbiology Results Procedure Source Organism/Result Collection Date/Time Result Date/Time Result Status Blood Culture Blood NO GROWTH AFTER 72 HOURS 6:56pm 06/10/2017 9:15pm Preliminary Procedures Procedure Status Date Provider(s) X-ray of chest, two views Active 06/11/17 JANNET HARRIS MD Encounters Encounter Location Arrival/Admit Date Discharge/Depart Date Attending Provider Discharged Inpatient [facility] 06/07/17 8:55pm 06/11/17 6:02pm JANNET HARRIS MD
[2017-07-15] MEDS ORDERED: SODIUM CHLORIDE 0.9% 500ML 500 ML IV STA (07:15)
[2017-07-15] MEDS ORDERED: ONDANSETRON HCL INJ 2 MG/ML VIAL IV STA (07:15)
--- NOTE | 2017-07-15 07:56 | Diagnostic Imaging Report ---
PROCEDURE: X-RAY CHEST, TWO VIEWS COMPARISON: Chest radiograph 06/2017, CT chest 04/07/2016. INDICATIONS: COUGH, CHILLS, VOMITING FINDINGS: The lungs are well-inflated. Scattered peripheral and lower lung predominant fibrotic changes are again noted. Superimposed worsening airspace disease in the right upper lobe relative to the examination from June 2017. Stable mild cardiomegaly with prominence of the central pulmonary vasculature. No definite pleural effusion. No acute osseous abnormality. CONCLUSION: Diffuse peripheral and lower lobe predominant fibrotic changes seen to better advantage on comparison CT scan, with superimposed right upper lobe pneumonia. Followup chest x-ray in 8 weeks is suggested to document resolution. Dictated by: Pavel Self M.D. on 07/15/2017 at 7:56 Electronically approved by: Pavel Self M.D. on 07/15/2017 at 7:56
[2017-07-15] MEDS ORDERED: AZITHROMYCIN 500MG/NS 250 ML 250 ML IV STA (08:06)
[2017-07-15] MEDS ORDERED: CEFTRIAXONE SOD 1 GM VIAL IV ONE (08:15)
[2017-07-15 08:26] LABS: BASOPHILS % 0.2 % (0.0-1.0); EOSINOPHILS % 0.2 % (0.0-6.0); HEMATOCRIT 39.4 % (38.2-49.6); LYMPHOCYTES # (AUTO) 0.9 (1.0-3.2); LYMPHOCYTES % 5.7 % (18.0-39.1); MEAN CORPUSCULAR HEMOGLOBIN 30.6 pg (28-32); MEAN CORPUSCULAR VOLUME 92.7 fL (81-99); MONOCYTES % 6.3 % (4.4-11.3); NEUTROPHILS # (AUTO) 13.1 (2.1-6.9); NEUTROPHILS % 87.3 % (38.7-80.0); PLATELET COUNT 204 x10e3/uL (140-360); RED BLOOD COUNT 4.25 x10e6/uL (4.3-5.7); RED CELL DISTRIBUTION WIDTH 14.7 % (11.7-14.4)
[2017-07-15 08:35] LABS: BILIRUBIN,URINE NEGATIVE (NEGATIVE); KETONES,URINE NEGATIVE (NEGATIVE); LEUKOCYTE ESTERASE ,URINE NEGATIVE (NEGATIVE); NITRITE,URINE NEGATIVE (NEGATIVE); PROTEIN,URINE DIPSTICK NEGATIVE (NEGATIVE); URINE UROBILINOGEN 0.2 mg/dL (0.2 - 1)
[2017-07-15 08:38] LABS: CLARITY,URINE CLEAR (CLEAR); COLOR,URINE YELLOW (YELLOW)
[2017-07-15 08:46] LABS: ALBUMIN/GLOBULIN RATIO 0.9 (0.8-2.0); ANION GAP 11.8 mmol/L (8-16); CALCIUM 8.9 mg/dL (8.4-10.2); CREATININE, SERUM 1.39 mg/dL (0.72-1.25); POTASSIUM 3.8 mmol/L (3.5-5.1)
[2017-07-15 08:53] LABS: CREATINE KINASE MB 0.9 ng/mL (0-5.0)
[2017-07-15 08:54] LABS: BACTERIA,URINE RARE /HPF; EPITHELIAL CELLS,URINE RARE /LPF
[2017-07-15] MEDS ORDERED: SODIUM CHLORIDE 0.9% 1000ML 1,000 ML IV SCH (08:57)
[2017-07-15] MEDS ORDERED: SODIUM CHLORIDE FLUSH 10 ML SYR INJ PRN (09:00)
[2017-07-15] MEDS ORDERED: AZITHROMYCIN 500MG/SOD CHL 0.9% 250ML BAG IV SCH (09:00)
[2017-07-15] MEDS ORDERED: ALBUTEROL SULF 0.083% NEB SOLN 3 ML NEB NEB SCH (09:00)
[2017-07-15] MEDS ORDERED: ONDANSETRON HCL INJ 2 MG/ML VIAL IV PRN (09:15)
[2017-07-15] MEDS: CEFTRIAXONE SOD 1 GM VIAL IV SCH ×2 (09:19→20:47)
[2017-07-15] MEDS: ALBUTEROL SULF 0.083% NEB SOLN 3 ML NEB NEB SCH ×4 (11:00→23:00)
[2017-07-15 12:45] VITALS: BP 115/56
[2017-07-15 12:49] VITALS: BP 115/56
[2017-07-15 16:14] VITALS: BP 104/50
[2017-07-15 19:40] VITALS: BP 106/55
[2017-07-15 20:00] VITALS: BP 106/55
[2017-07-15] MEDS: PROPAFENONE HCL SR 325 MG CAPCR PO SCH (20:47)
[2017-07-15] MEDS: SIMVASTATIN 40 MG TAB PO SCH (20:48)
[2017-07-16 00:36] VITALS: BP 106/54
[2017-07-16] MEDS: ALBUTEROL SULF 0.083% NEB SOLN 3 ML NEB NEB SCH (03:00)
--- NOTE | 2017-07-16 03:19 | Consultation ---
DATE OF CONSULTATION: July 15, 2017 PULMONARY MEDICINE CONSULT REFERRING PHYSICIAN: Dr. Arnold. REASON FOR REFERRAL: Pneumonia. HISTORY: Mr. Bowen is a pleasant 86-year-old gentleman with pneumonia. Patient was in his usual state of health until 2 days ago. Patient began to have a cough. He began to have phlegm that was mostly clear. Patient felt some muscle aches as well. He denies marvin fevers, but he did have chills. As he did not feel better over the next day, he decided to come to [facility] for assessment. On chest radiography, patient with chest x-ray which has worse than his x-ray from 5 weeks ago. Decision is made to admit him and treat him. Patient with history of interstitial lung disease at baseline, and it is a cellular-fibrotic variant. 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 Patient with an echocardiogram on June 08, 2017, showing LVEF 55% to 60%, RVSP 42.8 mmHg, and he has moderate to severe mitral stenosis. PAST MEDICAL HISTORY: Coronary artery disease status post stent, peripheral vascular disease status post stent, SVT arrhythmia, thyroid abnormality, hypertension, dyslipidemia, BPH, GERD, interstitial lung disease. MEDICATIONS: Medication list reviewed per electronic record. ALLERGIES: NO KNOWN DRUG ALLERGIES. SOCIAL HISTORY: No alcohol, no drugs. He smoked from age 13 to 28, 2 packs per day. Patient was in [employer] for 7 years, and then he worked for the [employer] until he retired. No known occupational exposures. . FAMILY HISTORY: Noncontributory. REVIEW OF SYSTEMS GENERALLY: No weight changes. OPHTHALMOLOGIC: No double vision. ENT: No ulcers in mouth. ENDOCRINE: Euthyroid, he believes. PULMONARY: No asthma. CARDIAC: No recent myocardial infarction. GI: No constipation. : No dysuria. NEUROLOGIC: No seizures. MUSCULOSKELETAL: Mild arthritis. DERMATOLOGIC: No rashes. PHYSICAL EXAMINATION VITAL SIGNS: Afebrile. Vital signs noted per electronic record. Blood pressure running low normal, often in the 100s systolic. HEENT: Normocephalic, atraumatic. GENERALLY: Calm in bed, stating he feels better today than he did when he came this morning. NECK: Supple. Throat midline. LUNGS: Bilateral air entry, a few crackles bilateral. CARDIOVASCULAR: S1 and S2. No murmurs, rubs or gallops. ABDOMINAL: Soft, nontender. EXTREMITIES: No clubbing, no cyanosis. There is no edema. INTEGUMENT: No rash, no purpura. LABS: Potassium 3.8, BUN 23, creatinine 1.39. Rheumatoid factor previously was noted as 22.8 in 2016 with negative JESSICA in 2016. BNP now was 247, total protein 8.5, albumin 4.0. IMPRESSION AND PLAN 1. Abnormal chest radiography, pneumonia. 2. Abnormal chest radiography, possible superimposed fluid overload. 3. History of mitral stenosis. 4. 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 5. Coronary artery disease status post stent. 6. Peripheral vascular disease status post stent. 7. Hypertension, dyslipidemia, gastroesophageal reflux disease, benign prostatic hypertrophy, thyroid abnormality, chronic kidney disease, supraventricular tachycardia history. At this time, he has had enough hydration. Will stop the IV fluid. Give him some continued Lasix. When his lungs are optimally dry and pneumonia is reasonably treated, will repeat CAT scan to compare to previous. At that point, will consider if the chronic interstitial lung disease is stable or progressing. He needs to get his outpatient PFTs. Follow up closely. Antibiotics, bronchodilators. Intermittent surveillance of his mitral stenosis is also needed as outpatient. Thank you very much, Dr. Arnold, for allowing me to participate in the care of Mr. Bowen. Please call for questions. Job#: [id number] CONNOR
[2017-07-16 03:45] VITALS: BP 105/52
[2017-07-16] MEDS ORDERED: LEVOTHYROXINE SODIUM 88 MCG TAB PO SCH (06:30)
--- NOTE | 2017-07-16 06:55 | Diagnostic Imaging Report ---
CHEST SINGLE (PORTABLE), 07/16/2017 5:00 AM Technique: CHEST SINGLE (PORTABLE) Comparison: 06/07/2017 Clinical history: CHF Findings: See Impression Impression: 1. Stable enlarged cardiomediastinal silhouette. 2. Bilateral opacities which may be due to edema. Superimposed infection not excluded in the proper clinical context. Question layering pleural fluid. Signed by: Dr Liz Alexandre MD on 07/16/2017 6:52 AM
[2017-07-16 07:00] LABS: BASOPHILS % 0.2 % (0.0-1.0); EOSINOPHILS % 0.3 % (0.0-6.0); HEMATOCRIT 29.7 % (38.2-49.6); LYMPHOCYTES # (AUTO) 1.4 (1.0-3.2); LYMPHOCYTES % 16.1 % (18.0-39.1); MEAN CORPUSCULAR HEMOGLOBIN 30.5 pg (28-32); MEAN CORPUSCULAR HGB CONC 32.7 g/dL (31-35); MEAN CORPUSCULAR VOLUME 93.4 fL (81-99); MONOCYTES # (AUTO) 0.8 (0.2-0.8); MONOCYTES % 9.4 % (4.4-11.3); NEUTROPHILS # (AUTO) 6.6 (2.1-6.9); NEUTROPHILS % 73.6 % (38.7-80.0); RED BLOOD COUNT 3.18 x10e6/uL (4.3-5.7); RED CELL DISTRIBUTION WIDTH 14.9 % (11.7-14.4)
[2017-07-16 07:06] LABS: HEMOGLOBIN 9.7 g/dL (14.0-18.0); PLATELET COUNT 144 x10e3/uL (140-360)
[2017-07-16 07:08] VITALS: BP 130/62
[2017-07-16 07:20] LABS: MAGNESIUM 1.7 MG/DL (1.3-2.1); PHOSPHORUS 2.6 MG/DL (2.3-4.7)
[2017-07-16 07:27] LABS: ANION GAP 10.6 mmol/L (8-16); CREATININE, SERUM 1.15 mg/dL (0.72-1.25); POTASSIUM 3.6 mmol/L (3.5-5.1)
[2017-07-16 07:36] LABS: THYROID STIMULATING HORMONE 2.797 uIU/mL (0.350-4.940)
[2017-07-16] MEDS ORDERED: PANTOPRAZOLE SOD 40 MG TABEC PO SCH (09:00)
[2017-07-16] MEDS ORDERED: FUROSEMIDE INJ 10 MG/ML 4 ML VIAL IV SCH (09:00)
[2017-07-16] MEDS ORDERED: AZITHROMYCIN 500MG/NS 250 ML 250 ML IV SCH (09:00)
[2017-07-16] MEDS ORDERED: LOSARTAN POTASSIUM 100 MG TAB PO SCH (09:00)
[2017-07-16] MEDS ORDERED: FUROSEMIDE 40 MG TAB PO SCH (09:00)
[2017-07-16] MEDS ORDERED: CLOPIDOGREL BISULFATE 75 MG TAB PO SCH (09:00)
[2017-07-16] MEDS: CEFTRIAXONE SOD 1 GM VIAL IV SCH ×2 (09:05→20:08)
[2017-07-16] MEDS: PROPAFENONE HCL SR 325 MG CAPCR PO SCH ×2 (09:06→20:08)
[2017-07-16] MEDS ORDERED: TAMSULOSIN HCL 0.4 MG CAP PO SCH ×2 (09:22→21:00)
[2017-07-16 11:52] VITALS: BP_SYST 103; BP_SYST 175; BP_DIAS 53; BP_DIAS 79
[2017-07-16 15:55] VITALS: BP 120/63
[2017-07-16] MEDS ORDERED: POTASSIUM CHLORIDE 20 MEQ TAB CR PO ONE (19:45)
[2017-07-16 20:05] VITALS: BP 102/68
[2017-07-16] MEDS: SIMVASTATIN 40 MG TAB PO SCH (20:08)
--- NOTE | 2017-07-16 20:10 | Progress Note ---
DATE: July 16, 2017 PULMONARY MEDICINE PROGRESS NOTE SUBJECTIVE: Mr. Bowen was seen and examined at bedside. Patient continues to have slow progress. Chest x-ray looked at about the same as yesterday. Patient with continued pneumonitis versus fluid overload, likely both being present. Patient was not able to walk today. Family at bedside and their questions were answered. No further hemoptysis noted. REVIEW OF SYSTEMS: No bleeding, no rash. OBJECTIVE VITAL SIGNS: Afebrile, vital signs noted per electronic record. GENERAL: In no acute distress, alert and calm. HEENT: Normocephalic, atraumatic. NECK: Supple. Throat midline. LUNGS: Bilateral air entry, few rhonchi, small, limited auscultation. CARDIOVASCULAR: S1, S2. No murmurs, rubs or gallops. ABDOMEN: Soft, nontender. EXTREMITIES: No clubbing, no cyanosis, there is trace edema. INTEGUMENT: No rash, no purpura. LABS: 3.6 potassium, 16 BUN, 1.1 creatinine, 9 white count, 29 hematocrit, 144,000 platelets. IMPRESSIONS AND PLAN 1. Abnormal chest radiography, acute pneumonia. 2. Abnormal chest radiography, acute fluid overload. 3. Abnormal chest radiography, underlying chronic interstitial lung disease, possible nonspecific interstitial pneumonia radiographically. 4. History of coronary artery disease. 5. Peripheral vascular disease. 6. History of hypertension, dyslipidemia, gastroesophageal reflux disease, BPH, thyroid abnormality, chronic kidney disease, supraventricular tachycardia. Continue to dry the patient out. He remains on diuretics. As he gets better, will expect to do a CT of chest if lungs clear out. We need to compare the previous interstitial lung disease. Patient will have some potassium replacement today. Followup closely. Continue antibiotics. Nebulizers will be ordered p.r.n. although I am not sure they will have here. Job#: [id number] [id number]
== END 2017-07-16 20:41 | DRG 871 ==
LOC: ER 06:56 → ERHOLD 09:13 → MED/SURG3 09:15
DX: A41.9 Sepsis, unspecified organism (principal); J18.9 Pneumonia, unspecified organism; I13.0 Hypertensive heart and chronic kidney disease with heart failure and stage 1 through stage 4 chronic kidney disease, or unspecified chronic kidney disease; J84.10 Pulmonary fibrosis, unspecified; I50.22 Chronic systolic (congestive) heart failure; I73.9 Peripheral vascular disease, unspecified; I47.1 Supraventricular tachycardia; Z87.891 Personal history of nicotine dependence; I05.0 Rheumatic mitral stenosis; I25.10 Atherosclerotic heart disease of native coronary artery without angina pectoris; Z95.5 Presence of coronary angioplasty implant and graft; Z95.820 Peripheral vascular angioplasty status with implants and grafts; N18.9 Chronic kidney disease, unspecified; E78.5 Hyperlipidemia, unspecified; K21.9 Gastro-esophageal reflux disease without esophagitis; N40.0 Benign prostatic hyperplasia without lower urinary tract symptoms; R09.02 Hypoxemia; R53.81 Other malaise; Z79.02 Long term (current) use of antithrombotics/antiplatelets
CPT/HCPCS: 36415; 71045; 71046; 80048; 80053; 81001; 82550; 82553; 83605; 83735; 83880; 84100; 84443; 84484; 85025; 87040; 87400; 93005; 99284; J0456; J0696; J1940; J2405; J7030; J7040